=== PATIENT | male | born 1990 | race Two or more races ===

== ENCOUNTER 2023-05-15 16:46 | Outpatient (CLI) | payer OTHER ==
--- NOTE | 2023-05-20 08:39 | MRI Report ---
PROCEDURE: SHOULDER WO - RT INDICATIONS: RIGHT SHOULDER PAIN TECHNIQUE: Noncontrast oblique coronal T2 fast spin echo with fat saturation, oblique sagittal T1 spin echo and T2 fast spin echo with fat saturation, axial T1 spin echo and T2 fast spin echo with fat saturation t hrough the shoulder. COMPARISON: None. FINDINGS: Image quality: Excellent. Rotator cuff: Moderate supraspinatus, infraspinatus, and subscapularis tendons without high-grade tea r. No rotator cuff muscle atrophy on sagittal images. Mild teres minor muscle atrophy with fatty in filtration Bones and bursae: No bone marrow contusions or fractures. Moderate acromioclavicular joint degenerat ion. The acromion demonstrates conventional anatomy, without an os acromiale. No pathologic subacro mial/subdeltoid bursal fluid is present. Capsule and soft tissues: There is anterior superior labral tear 9:00-12:00 position. Of intra-artic ular contrast, the labrum and glenohumeral ligaments appear intact. The long head of the biceps tend on demonstrates normal location and morphology. The rotator interval appears normal, without fibrosi s. The coracohumeral ligament is normal in thickness. IMPRESSION: 1. Moderate rotator cuff tendinosis. No high-grade tendon tear. 2. Moderate acromioclavicular joint degeneration. 3. Anterior superior labral tear. 4. Mild atrophy of teres minor muscle. Etiology not identified Reviewed by: Eliecer Paulino MD on 05/20/2023 8:38 AM PDT Approved by: Eliecer Paulino MD on 05/20/2023 8:38 AM PDT Station ID: [id number]
== END 2023-05-15 16:47 | disposition home or self-care (01) ==
LOC: DI 16:46
PROVIDERS: ATTEND Physician Assistant
DX: M67.813 Other specified disorders of tendon, right shoulder (principal); M19.011 Primary osteoarthritis, right shoulder; S43.431A Superior glenoid labrum lesion of right shoulder, initial encounter; M62.511 Muscle wasting and atrophy, not elsewhere classified, right shoulder